=== PATIENT | female | born 1990 | race Caucasian/White ===

== ENCOUNTER 2017-11-24 05:17 | Emergency (ER) | payer SELFPAY ==
--- NOTE | 2017-11-24 05:35 | EDM.PDOC ---
ED HPI GENERAL MEDICAL PROBLEM - General Chief Complaint: Allergic Reaction Stated Complaint: HIVES ALL OVER BODY Time Seen by Provider: 11/24/17 05:24 - History of Present Illness INITIAL COMMENTS - FREE TEXT/NARRATIVE: HISTORY AND PHYSICAL: History of present illness: The patient is a 27-year-old female who is a history of diabetes and uses insulin and is new to the area and does not have a local provider and presents with complaints of hives on her body diffusely that started yesterday. She says that she did not take any medication although yesterday and then last evening around midnight it seemed to be a little but worse a little more itchy so she took one dose of Benadryl 50 mg. She presents today because they are persisting and she thinks the Benadryl made him worse and they're more itchy and now her upper lip is a little bit swollen. She denies any recent new medications both [id number] and prescription and has no new products or new foods. She says she is unsure if she is and her diabetes is not well controlled and she says that her sugars at home of been in the 400s. She is not having any dysuria frequency urgency no abdominal pain vomiting or diarrhea and no chest pain or shortness of breath. She's not had any fevers. Patient states that she is managing her sugars at home and is using sliding scale and has the ability to check her blood sugars Review of systems: As per history of present illness and below otherwise all systems reviewed and negative. Past medical history: As per history of present illness and as reviewed below otherwise noncontributory. Surgical history: As per history of present illness and as reviewed below otherwise noncontributory. Social history: No reported history of drug or alcohol abuse. Family history: As per history of present illness and as reviewed below otherwise noncontributory. Physical exam: General: Well-developed well-nourished overweight female who is nontoxic and vital signs are noted by me. The patient is not scratching or itching at the areas and does not look uncomfortable. HEENT: Atraumatic, normocephalic, pupils reactive, negative for conjunctival pallor or scleral icterus, mucous membranes moist, throat clear, neck supple, nontender, trachea midline. Some mild swelling of the upper lip in the midline but the lower lip is normal and there is no oropharyngeal erythema. The face is not swollen nor does it have any hives or urticaria there. Lungs: Clear to auscultation, breath sounds equal bilaterally, chest nontender. No wheezing stridor or work of breathing Heart: S1S2, regular rate and rhythm no overt murmurs Abdomen: Soft, nondistended, nontender. NABS Pelvis: Deferred Genitourinary: Deferred. Rectal: Deferred. Extremities: Atraumatic, negative for cords or calf pain. Neurovascular unremarkable. Neuro: Awake, alert, oriented. Cranial nerves II through XII unremarkable. Cerebellum unremarkable. Motor and sensory unremarkable throughout. Exam nonfocal. Rash: There is scattered areas of urticarial rash seen on the extremities and some diffuse erythema at the anterior neck but there is nothing on the face. Diagnostics: [id number] Therapeutics: [] Discussed with the patient that she needs to continue with the Benadryl around- the-clock every 6 hours for the next 36 hours and I will add prednisone. I've advised her that the prednisone will cause a rise in her blood sugar in that she needs to monitor that very closely and adjust her sliding scale insulin appropriately. We will give her referral to our clinic so she can get connected for primary care and with the adaptive physical educator. Impression: Contact allergic reaction Definitive disposition and diagnosis as appropriate pending reevaluation and review of above. denies pain Pain Score (Numeric/FACES): 0 - Related Data Allergies Allergy/AdvReac Type Severity Reaction Status Date / Time amoxicillin Allergy Hives Verified 11/24/17 05:25 ED ROS ALLERGIC REACTION - Review of Systems Review Of Systems: ROS reveals no pertinent complaints other than HPI. ED EXAM GENERAL NO PERIP PULSE - Physical Exam Exam: See Below (See dictation) Course - Vital Signs Last Recorded V/S: Last Vital Signs Temp 36.2 C 11/24/17 05:25 Pulse 94 11/24/17 05:25 Resp 18 11/24/17 05:25 BP 149/91 H 11/24/17 05:25 Pulse Ox 98 11/24/17 05:25 - Orders/Labs/Meds Orders: Active Orders 24 hr Category Date Time Status Blood Glucose Check, Bedside [RC] ONETIME Care 11/24/17 05:29 Active Departure - Departure Time of Disposition: 05:35 Disposition: Home, Self-Care 01 Condition: Good Clinical Impression: Contact allergic reaction, Urticaria - Discharge Information Referrals: PCP,None [Primary Care Provider] - Additional Instructions: The following information is given to patients seen in the emergency department who are being discharged to home. This information is to outline your options for follow-up care. We provide all patients seen in our emergency department with a follow-up referral. The need for follow-up, as well as the timing and circumstances, are variable depending upon the specifics of your emergency department visit. If you don't have a primary care physician on staff, we will provide you with a referral. We always advise you to contact your personal physician following an emergency department visit to inform them of the circumstance of the visit and for follow-up with them and/or the need for any referrals to a consulting specialist. The emergency department will also refer you to a specialist when appropriate. This referral assures that you have the opportunity for followup care with a specialist. All of these measure are taken in an effort to provide you with optimal care, which includes your followup. Under all circumstances we always encourage you to contact your private physician who remains a resource for coordinating your care. When calling for followup care, please make the office aware that this follow-up is from your recent emergency room visit. If for any reason you are refused follow-up, please contact the [facility] emergency department at and ask to speak to the emergency department charge nurse. [facility] Primary care- Internal Medicine and Family [address] [address] Please call in the morning and schedule a follow-up appointment in our clinic. Please use Benadryl 50 mg every 6 hours [id number] for the next 36 hours to try to reduce the histamine itching and irritation. Please also take prednisone as prescribed keeping in mind that it may elevate your blood sugars and please check them more frequently and dose her insulin appropriately to cover. Please watch your diet and push hydration such as water. He mails use [id number] Benadryl cream or hydrocortisone cream as well as oatmeal baths to help with the itching. He will take several days for the symptoms to improve. Return to ER as needed and as discussed - My Orders Last 24 Hours: My Active Orders 11/24/17 05:29 Blood Glucose Check, Bedside [RC] ONETIME - Assessment/Plan Last 24 Hours: My Active Orders 11/24/17 05:29 Blood Glucose Check, Bedside [RC] ONETIME
== END 2017-11-24 05:45 | disposition home or self-care (01) ==
LOC: MW.ED 05:17
DX: L50.0 Allergic urticaria (principal); E11.9 Type 2 diabetes mellitus without complications; Z88.1 Allergy status to other antibiotic agents
CPT/HCPCS: 82962; 99283

== ENCOUNTER 2018-06-03 19:00 | Emergency (ER) | payer SELFPAY ==
[2018-06-03] MEDS ORDERED: Sodium Chloride 0.9% 1,000 ML IV ONE (20:13)
[2018-06-03] MEDS ORDERED: Insulin Regular, Human 100 Units/ML 10 ML Vial SUBCUT ONE (20:15)
--- NOTE | 2018-06-03 20:27 | EDM.PDOC ---
ED HPI GENERAL MEDICAL PROBLEM - General Chief Complaint: Lower Extremity Injury/Pain Stated Complaint: SORE ON L FOOT Time Seen by Provider: 06/03/18 20:01 - History of Present Illness INITIAL COMMENTS - FREE TEXT/NARRATIVE: HISTORY AND PHYSICAL: History of present illness: Patient 27-year-old white female sensory concern of medical noncompliance and some erythema and tenderness in the region of her left heel. She's had no fever chills nausea vomiting she denies trauma she has been without her insulin times a month and half due to insurance challenges Review of systems: As per history of present illness and below otherwise all systems reviewed and negative. Past medical history: As per history of present illness and as reviewed below otherwise noncontributory. Surgical history: As per history of present illness and as reviewed below otherwise noncontributory. Social history: No reported history of drug or alcohol abuse. Family history: As per history of present illness and as reviewed below otherwise noncontributory. Physical exam: HEENT: Atraumatic, normocephalic, pupils reactive, negative for conjunctival pallor or scleral icterus, mucous membranes moist, throat clear, neck supple, nontender, trachea midline. Lungs: Clear to auscultation, breath sounds equal bilaterally, chest nontender. Heart: S1S2, regular, negative for clicks, rubs, or JVD. Abdomen: Soft, nondistended, nontender. Negative for masses or hepatosplenomegaly. Negative for costovertebral tenderness. Pelvis: Stable nontender. Genitourinary: Deferred. Rectal: Deferred. Extremities: Patient has approximately 4 cm erythematous area in the region of her left heel medial to her Achilles and slightly distal CMS neurovascular exam is unremarkable is no fluctuance no significant induration Neuro: Awake, alert, oriented. Cranial nerves II through XII unremarkable. Cerebellum unremarkable. Motor and sensory unremarkable throughout. Exam nonfocal. Diagnostics: CBC CMP x-ray left foot Therapeutics: 1 L bolus Regular Insulin 20 units Impression: #1 medical noncompliance #2 uncontrolled diabetes #3 rule out cellulitis Definitive disposition and diagnosis as appropriate pending reevaluation and review of above. Left foot Pain Score (Numeric/FACES): 8 - Related Data Allergies Allergy/AdvReac Type Severity Reaction Status Date / Time amoxicillin Allergy Hives Verified 06/03/18 19:50 Home Meds: Home Meds Escitalopram Oxalate [Lexapro] 20 mg PO DAILY 11/24/17 [History] Insulin Aspart [NovoLOG] 1 injection SQ ASDIRECTED 11/24/17 [History] Insulin Glarg,Human.Rec.Analog [Lantus] 28 unit SQ BEDTIME 11/24/17 [History] Past Medical History HEENT History: Reports: None Cardiovascular History: Reports: None Respiratory History: Reports: Asthma Gastrointestinal History: Reports: None Genitourinary History: Reports: Renal Calculus 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: Musculoskeletal History: Reports: None Neurological History: Reports: None Psychiatric History: Reports: Anxiety, Depression Endocrine/Metabolic History: Reports: Diabetes, Type I Hematologic History: Reports: None Immunologic History: Reports: None Oncologic (Cancer) History: Reports: None Dermatologic History: Reports: None - Infectious Disease History Infectious Disease History: Reports: Hepatitis A - Past Surgical History Head Surgeries/Procedures: Reports: None Social & Family History - Family History Family Medical History: Noncontributory - Tobacco Use Smoking Status *Q: Never Smoker Second Hand Smoke Exposure: No - Caffeine Use Caffeine Use: Reports: Energy Drinks - Recreational Drug Use Recreational Drug Use: No Review of Systems - Review of Systems Review Of Systems: ROS reveals no pertinent complaints other than HPI. ED EXAM, GENERAL - Physical Exam Exam: See Below (The dictation) Course - Vital Signs Last Recorded V/S: Last Vital Signs Temp 36.8 C 06/03/18 19:50 Pulse 101 H 06/03/18 19:50 Resp 18 06/03/18 19:50 BP 176/81 H 06/03/18 19:50 Pulse Ox 100 06/03/18 19:50 - Orders/Labs/Meds Orders: Active Orders 24 hr Category Date Time Status COMPREHENSIVE METABOLIC PN,CMP [CHEM] Stat Lab 06/03/18 20:13 Ordered Labs: Laboratory Tests 06/03/18 06/03/18 Range/Units 20:44 20:44 WBC 7.22 (4.0-11.0) K/uL RBC 5.10 (4.30-5.90) M/uL Hgb 15.3 (12.0-16.0) g/dL Hct 42.5 (36.0-46.0) % MCV 83.3 (80.0-98.0) fL MCH 30.0 (27.0-32.0) pg MCHC 36.0 (31.0-37.0) g/dL RDW Std Deviation 42.8 (28.0-62.0) fl RDW Coeff of Rut 15 (11.0-15.0) % Plt Count 288 (150-400) K/uL MPV 10.80 (7.40-12.00) fL Neut % (Auto) 62.6 (48.0-80.0) % Lymph % (Auto) 25.2 (16.0-40.0) % [place] % (Auto) 9.3 (0.0-15.0) % Eos % (Auto) 1.9 (0.0-7.0) % Baso % (Auto) 1.0 (0.0-1.5) % Neut # (Auto) 4.5 (1.4-5.7) K/uL Lymph # (Auto) 1.8 (0.6-2.4) K/uL [place] # (Auto) 0.7 (0.0-0.8) K/uL Eos # (Auto) 0.1 (0.0-0.7) K/uL Baso # (Auto) 0.1 (0.0-0.1) K/uL Nucleated RBC % 0.0 /100WBC Nucleated RBCs # 0 K/uL Urine Color YELLOW Urine Appearance CLEAR Urine pH 5.5 (5.0-8.0) Ur Specific [place] 1.025 (1.001-1.035) Urine Protein NEGATIVE (NEGATIVE) mg/dL Urine Glucose (UA) 500 H (NEGATIVE) mg/dL Urine Ketones >=80 (NEGATIVE) mg/dL Urine Occult Blood TRACE-INTACT H (NEGATIVE) Urine Nitrite NEGATIVE (NEGATIVE) Urine Bilirubin NEGATIVE (NEGATIVE) Urine Urobilinogen 0.2 (<2.0) EU/dL Ur Leukocyte Esterase NEGATIVE (NEGATIVE) Urine RBC NONE SEEN (0-2/HPF) Urine WBC 0-1 (0-5/HPF) Ur Squamous Epith Cells FEW Urine Bacteria 1+ H (NEGATIVE) Urine Mucus LIGHT (NONE-MOD) Meds: Medications Discontinued Medications Generic Name Dose Route Start Last Admin Trade Name Freq PRN Reason Stop Dose Admin Sodium Chloride 1,000 mls @ 999 mls/hr 06/03/18 20:13 06/03/18 20:38 Normal Saline IV 06/03/18 21:13 999 mls/hr STAT ONE Administration Insulin Human Regular 20 unit 06/04/18 20:15 Novolin R SUBCUT 06/04/18 20:16 ONETIME ONE Protocol Insulin Human Regular Confirm 06/03/18 20:33 06/03/18 20:40 Novolin R Administered 06/03/18 20:34 Not Given Dose 1,000 unit .ROUTE .STK-MED ONE Insulin Human Regular 20 unit 06/03/18 20:15 06/03/18 20:39 Novolin R SUBCUT 06/03/18 20:16 20 unit ONETIME ONE Administration Protocol Departure - Departure Time of Disposition: 21:29 Disposition: Home, Self-Care 01 Condition: Good Clinical Impression: Medical non-compliance, Diabetes, Cellulitis - Discharge Information Referrals: PCP,None [Primary Care Provider] - Forms: ED Department Discharge Additional Instructions: The following information is given to patients seen in the emergency department who are being discharged to home. This information is to outline your options for follow-up care. We provide all patients seen in our emergency department with a follow-up referral. The need for follow-up, as well as the timing and circumstances, are variable depending upon the specifics of your emergency department visit. If you don't have a primary care physician on staff, we will provide you with a referral. We always advise you to contact your personal physician following an emergency department visit to inform them of the circumstance of the visit and for follow-up with them and/or the need for any referrals to a consulting specialist. The emergency department will also refer you to a specialist when appropriate. This referral assures that you have the opportunity for followup care with a specialist. All of these measure are taken in an effort to provide you with optimal care, which includes your followup. Under all circumstances we always encourage you to contact your private physician who remains a resource for coordinating your care. When calling for followup care, please make the office aware that this follow-up is from your recent emergency room visit. If for any reason you are refused follow-up, please contact the [facility] emergency department at and asked to speak to the emergency department charge nurse. [facility] - Podiatry [address] [place] [id number] Fax: [phone] [facility] [address] [place] [id number] Keflex as prescribed insulin as directed push fluids follow-up podiatry and primary care above called to schedule appointment return as needed as discussed - My Orders Last 24 Hours: My Active Orders 06/03/18 20:13 COMPREHENSIVE METABOLIC PN,CMP [CHEM] Stat - Assessment/Plan Last 24 Hours: My Active Orders 06/03/18 20:13 COMPREHENSIVE METABOLIC PN,CMP [CHEM] Stat
[2018-06-03] MEDS ORDERED: Insulin Regular, Human 100 Units/ML 10 ML Vial ONE (20:33)
--- NOTE | 2018-06-03 21:04 | CR ---
Indication: Pain Technique: Two views left foot Comparison: None Findings: Bones: Alignment is normal. No fractures or bone lesions. Joint spaces: Unremarkable. Soft tissues: Unremarkable. Impression: Negative. Dictated by Susan Samson MD @ Jun 03 2018 9:01PM Signed by Dr. Susan Samson @ Jun 03 2018 9:03PM
[2018-06-03 21:50] LABS: CHLORIDE,CL 100 mmol/L (98-107); SODIUM,NA 135 mmol/L (136-145)
[2018-06-04] MEDS ORDERED: Insulin Regular, Human 100 Units/ML 10 ML Vial SUBCUT ONE (20:15)
== END 2018-06-03 21:50 | disposition home or self-care (01) ==
LOC: MW.ED 19:00
DX: E11.65 Type 2 diabetes mellitus with hyperglycemia (principal); L03.116 Cellulitis of left lower limb; Z91.19 Patient's noncompliance with other medical treatment and regimen; Z79.4 Long term (current) use of insulin; F41.9 Anxiety disorder, unspecified; F32.9 Major depressive disorder, single episode, unspecified
CPT/HCPCS: 36415; 73620; 80053; 81001; 85025; 96360; 99284; J7040